=== PATIENT | male | born 1970 | race African-American/Black ===

== ENCOUNTER 2021-05-08 07:47 | Day surgery (SDC) | payer OTHER ==
[~2021-05-08] VITALS: Ht 175.3 cm; Wt 85.3 kg
[~2021-05-08 07:47] MED LIST: HYDR12.55 PO; NS 1,000 ML IV ONE
[2021-05-08] MEDS ORDERED: propofoL 200 MG/20 ML VIAL As Ordered ONE ×2 (08:02→08:41)
[2021-05-08] MEDS ORDERED: LIDOCAINE 2% 100MG/5ML SDV (FOR ANES.) As Ordered ONE (08:02)
--- NOTE | 2021-05-08 08:50 | ROOR ---
Patient Name: Claudio Lanier Procedure Date: 05/08/2021 8:32 AM Date of : 1970 Age: 50 Room: [facility] Gender: Male Note Status: Finalized Procedure: Upper Endoscopy + Biopsies Indications: Epigastric abdominal pain, Unexplained iron deficiency anemia Providers: Eliseo Kwok MD Referring MD: ALEJANDRO ZAVALETA MD Requesting Provider: Medicines: Monitored Anesthesia Care Complications: No immediate complications. Procedure: Pre-Anesthesia Assessment: - The heart rate, respiratory rate, oxygen saturations, blood pressure, adequacy of pulmonary ventilation, and response to care were monitored throughout the procedure. The Endoscope was introduced through the mouth, and advanced to the second part of duodenum. The upper GI endoscopy was accomplished without difficulty. The patient tolerated the procedure well. Findings: The Z-line was variable and was found 40 cm from the incisors. Multiple biopsies were obtained with cold forceps for evaluation to rule out Li's Esophagus randomly at the gastroesophageal junction. A small hiatal hernia was present. No other significant abnormalities were identified in a careful examination of the stomach. Biopsies were taken with a cold forceps in the gastric antrum for Helicobacter pylori testing. The exam of the duodenum was otherwise normal. Biopsies for histology were taken with a cold forceps in the first portion of the duodenum for evaluation of celiac disease. The exam was otherwise without abnormality. Impression: - Z-line variable, 40 cm from the incisors. - Small hiatal hernia. - The examination was otherwise normal. - Multiple biopsies were obtained at the gastroesophageal junction. - Biopsies were taken with a cold forceps for Helicobacter pylori testing. - Biopsies were taken with a cold forceps for evaluation of celiac disease. - The examination was otherwise normal. Recommendation: - Patient has a contact number available for emergencies. The signs and symptoms of potential delayed complications were discussed with the patient. Return to normal activities tomorrow. Written discharge instructions were provided to the patient. - High fiber diet. - Discharge patient to home. - Continue present medications. - Await pathology results. - Telephone GI clinic for pathology results in 1 week. - Return to referring physician. - The findings and recommendations were discussed with the patient. Procedure Code(s): --- Professional --- 58721, Esophagogastroduodenoscopy, flexible, transoral; with biopsy, single or multiple Diagnosis Code(s): --- Professional --- K22.8, Other specified diseases of esophagus K44.9, Diaphragmatic hernia without obstruction or gangrene R10.13, Epigastric pain D50.9, Iron deficiency anemia, unspecified CPT copyright 2019 [employer]. All rights reserved. The codes documented in this report are preliminary and upon vp product management review may be revised to meet current compliance requirements. Eliseo Kwok MD Eliseo Kwok MD 05/08/2021 8:50:12 AM Electronically signed by Eliseo Kwok MD Number of Addenda: 0 Note Initiated On: 05/08/2021 8:32 AM Estimated Blood Loss: Estimated blood loss: none.
--- NOTE | 2021-05-08 09:12 | ROOR ---
Patient Name: Claudio Lanier Procedure Date: 05/08/2021 8:33 AM Date of : 1970 Age: 50 Room: [facility] Gender: Male Note Status: Finalized Procedure: Total Colonoscopy to Cecum + Biopsy Polypectomy + Biopsies Indications: Screening for colorectal malignant neoplasm Providers: Eliseo Kwok MD Referring MD: ALEJANDRO ZAVALETA MD Requesting Provider: Medicines: Monitored Anesthesia Care Complications: No immediate complications. Procedure: Pre-Anesthesia Assessment: - The heart rate, respiratory rate, oxygen saturations, blood pressure, adequacy of pulmonary ventilation, and response to care were monitored throughout the procedure. The Colonoscope was introduced through the anus and advanced to the terminal ileum, with identification of the appendiceal orifice and IC valve. The colonoscopy was performed without difficulty. The patient tolerated the procedure well. The quality of the bowel preparation was excellent. Findings: The perianal and digital rectal examinations were normal. Non-bleeding internal hemorrhoids were found during retroflexion. The hemorrhoids were small and Grade I (internal hemorrhoids that do not prolapse). Multiple biopsies were obtained with cold forceps for histology randomly in the rectum. A small polyp was found in the ascending colon. The polyp was sessile. The polyp was removed with a cold biopsy forceps. Resection and retrieval were complete. The exam was otherwise without abnormality on direct and retroflexion views. The terminal ileum appeared normal. The exam was otherwise without abnormality. Impression: - Non-bleeding internal hemorrhoids. - One small polyp in the ascending colon, removed with a cold biopsy forceps. Resected and retrieved. - The examination was otherwise normal on direct and retroflexion views. - The examined portion of the ileum was normal. - The examination was otherwise normal. - Multiple biopsies were obtained in the rectum. - The exam was otherwise normal to the cecum. Recommendation: - Patient has a contact number available for emergencies. The signs and symptoms of potential delayed complications were discussed with the patient. Return to normal activities tomorrow. Written discharge instructions were provided to the patient. - High fiber diet. - Discharge patient to home. - Continue present medications. - Await pathology results. - Telephone GI clinic for pathology results in 1 week. - Return to referring physician. - Repeat colonoscopy in 10 years for screening purposes. - The findings and recommendations were discussed with the patient. Procedure Code(s): --- Professional --- 65077, Colonoscopy, flexible; with biopsy, single or multiple Diagnosis Code(s): --- Professional --- Z12.11, Encounter for screening for malignant neoplasm of colon K64.0, First degree hemorrhoids K63.5, Polyp of colon CPT copyright 2019 [employer]. All rights reserved. The codes documented in this report are preliminary and upon armature inspector review may be revised to meet current compliance requirements. Eliseo Kwok MD Eliseo Kwok MD 05/08/2021 9:12:01 AM Electronically signed by Eliseo Kwok MD Number of Addenda: 0 Note Initiated On: 05/08/2021 8:33 AM Estimated Blood Loss: Estimated blood loss: none.
[2021-05-08 09:35] VITALS: BP 106/66
== END 2021-05-08 09:51 | disposition home or self-care (01) ==
LOC: M OPP 07:47
PROVIDERS: ATTEND Internal Medicine Gastroenterology
DX: Z12.11 Encounter for screening for malignant neoplasm of colon (principal); K63.5 Polyp of colon; K64.0 First degree hemorrhoids; K22.89 Other specified disease of esophagus; K44.9 Diaphragmatic hernia without obstruction or gangrene; D50.9 Iron deficiency anemia, unspecified; R10.13 Epigastric pain; Z79.899 Other long term (current) drug therapy